=== PATIENT | female | born 2000 | race Caucasian/White ===

== ENCOUNTER 2018-12-21 23:15 | Emergency (ER) | payer OTHER ==
[2018-12-22 00:17] LABS: ABSOLUTE BASOPHILS # (AUTO) 0.1 10^3/uL (0.0-0.2); ABSOLUTE EOSINOPHILS # (AUTO) 0.2 10^3/uL (0.0-0.6); ABSOLUTE LYMPHOCYTES (AUTO) 1.2 10^3/uL (0.5-4.7); ABSOLUTE MONOCYTES (AUTO) 0.4 10^3/uL (0.1-1.4); ABSOLUTE NEUT (AUTO) 5.3 10^3/uL (1.7-8.2); BASOPHILS % (AUTO) 0.8 % (0-2); EOSINOPHILS % (AUTO) 2.7 % (0-6); HEMATOCRIT 42.9 % (36.0-47.0); LYMPHOCYTES % (AUTO) 16.6 % (13-45); MEAN CORPUSCULAR HEMOGLOBIN 31.5 pg (27.0-33.4); MEAN CORPUSCULAR VOLUME 90 fl (80-97); MONOCYTES % (AUTO) 5.4 % (3-13); PLATELET COUNT 231 10^3/uL (150-450); RED BLOOD COUNT 4.77 10^6/uL (3.72-5.28); RED CELL DISTRIBUTION WIDTH 13.1 % (11.5-14.0); SEGMENTED NEUTROPHILS % (AUTO) 74.5 % (42-78); TOTAL CELLS COUNTED % (AUTO) 100 %; WHITE BLOOD COUNT 7.1 10^3/uL (4.0-10.5)
[2018-12-22 00:19] LABS: APPEARANCE,URINE SLIGHTLY-CLOUDY; BILIRUBIN,URINE NEGATIVE (NEGATIVE); COLOR,URINE YELLOW; GLUCOSE, URINE NEGATIVE (NEGATIVE); KETONES,URINE NEGATIVE (NEGATIVE); LEUKOCYTE ESTERASE,URINE NEGATIVE (NEGATIVE); NITRITE,URINE POSITIVE (NEGATIVE); PROTEIN,URINE NEGATIVE (NEGATIVE); URINE SPECIFIC GRAVITY 1.017; UROBILINOGEN,URINE NEGATIVE mg/dL (<2.0)
--- NOTE | 2018-12-22 00:24 | ER Document Report ---
ED General - General Chief Complaint: Suicidal Ideation Stated Complaint: SUICIDAL Time Seen by Provider: 12/21/18 23:36 Notes: Patient is a 18-year-old female presents with complaint of suicidal ideations. She is brought in by mobile crisis. She is an [employer]. She said she has previous history of some mild depression but never had to attempt to try to hurt herself. She did have a an infant 5 months ago. She says she did have some depression starting after delivery of her and has progressively got worse. He admits that she is not exactly sure exactly what may be causing her to be so depressed or suicidal. She said she did talk to her doctor wants about depression but says nothing really came of the discussion. Tonight she wrote a suicide note. She does have a gun at home and plan on shooting her self. She is currently not on any medications. She is otherwise healthy. She has no other complaints at this time. TRAVEL OUTSIDE OF THE [place] IN LAST 30 DAYS: No Past Medical History - Social History Smoking Status: Unknown if Ever Smoked Chew tobacco use (# tins/day): No Frequency of alcohol use: None Drug Abuse: None Family History: Reviewed & Not Pertinent Patient has suicidal ideation: Yes Patient has homicidal ideation: No Renal/ Medical History: Denies: Hx Peritoneal Dialysis Review of Systems - Review of Systems Notes: My Normal Review Basic REVIEW OF SYSTEMS: CONSTITUTIONAL : Denies fever, chills, or sweats. Denies recent illness. RESPIRATORY: Denies cough, cold, or chest congestion. Denies shortness of breath, difficulty breathing, or wheezing. GASTROINTESTINAL: Denies abdominal pain. Denies nausea, vomiting, or diarrhea. GENITOURINARY: Denies difficulty urinating, painful urination, burning, frequency, or blood in urine. FEMALE GENITOURINARY: Denies vaginal bleeding, abnormal or irregular periods. MUSCULOSKELETAL: Denies neck or back pain or joint pain or swelling. SKIN: Denies rash or skin lesions. NEUROLOGICAL: Denies altered mental status or loss of consciousness. Denies headache. Denies weakness or paralysis or loss of use of either side. Denies problems with gait or speech. Denies sensory or motor loss. PSYCHIATRIC: Depression and suicidal ideations ALL OTHER SYSTEMS REVIEWED AND NEGATIVE. Physical Exam - Vital signs Vitals: Temp Pulse Resp BP Pulse Ox 98.1 F 72 16 110/72 97 06/15/19 23:17 12/21/18 23:17 12/21/18 23:17 12/21/18 23:17 12/21/18 23:17 - Notes Notes: General Appearance: Well nourished, alert, cooperative, no acute distress, no obvious discomfort. Tearful on exam. Vitals: reviewed, See vital signs table. Head: no swelling or tenderness to the head Eyes: PERRL, EOMI, Conjuctiva clear Mouth: No decreasd moisture Lungs: No wheezing, No rales, No rhonci, No accessory muscle use, good air exchange bilaterally. Heart: Normal rate, Regular rythm, No murmur, no rub Abdomen: Normal BS, soft, No rigidity, No abdominal tenderness, No guarding, no rebound Extremities: good pulses in all extremities, no swelling or tenderness in the extremities, no edema. Skin: warm, dry, appropriate color, no rash Neuro: speech clear, oriented x 3, normal affect, responds appropriately to questions. Psychiatric: Patient is very tearful on exam. She is obviously very depressed. She is very cooperative. She has normal organized thought process on exam. Course - Re-evaluation Re-evalutation: 12/22/18 01:30 Patient has appears to have true suicidal ideations. She is very tearful on exam and has a plan in the means to execute the plan. I suspect this most likely related to worsening depression is gone untreated. I suspect this being that the patient says he does not really have any inciting events that would be causing depression other than the fact that she noticed that it started to occur right after delivery of her child 5 months ago. She does have a gun at home. She did write a suicide note. I strongly feel that she needs to be evaluated by psychiatry. She is an active duty [employer] and informed her that she most likely will be transferred to [facility] in the morning after her mental health team talks to her. Patient is understanding of this. Patient's medical work-up is negative except for some nitrites in urine however she not have a significant amount of white blood cells and urinary symptoms and therefore I do not feel she needs treatment for UTI. Patient is medically stable for mental health evaluation. Dictation of this chart was performed using voice recognition software; therefore, there may be some unintended grammatical errors. - Vital Signs Vital signs: Temp Pulse Resp BP Pulse Ox 98.1 F 72 16 110/72 97 12/21/18 23:17 12/21/18 23:17 12/21/18 23:17 12/21/18 23:17 12/21/18 23:17 - Laboratory Result Diagrams: 12/21/18 23:45 12/21/18 23:45 Laboratory results interpreted by me: 12/21/18 12/21/18 23:45 23:45 Urine Blood SMALL H Urine Nitrite POSITIVE H Salicylates < 1.0 L Acetaminophen < 10 L - EKG Interpretation by Me Additional EKG results interpreted by me: 12/22/18 00:23 EKG is reviewed and interpreted by me. EKG shows sinus rhythm rate [address] segment elevation or depression. No ischemic T wave inversions. ME interval, QRS duration, QT intervals are within normal range. No old EKG available for comparison. Discharge - Discharge Clinical Impression: Suicidal ideations Condition: Stable Disposition: PSYCH HOSP/UNIT
[2018-12-22 00:27] LABS: ALANINE AMINOTRANSFERASE 36 U/L (9-52); ALBUMIN 4.4 g/dL (3.5-5.0); ALKALINE PHOSPHATASE 68 U/L (38-126); ANION GAP 8 (5-19); ASPARTATE AMINO TRANSFERASE 24 U/L (14-36); BILIRUBIN,DIRECT 0.2 mg/dL (0.0-0.4); BILIRUBIN,TOTAL 0.7 mg/dL (0.2-1.3); BLOOD UREA NITROGEN 12 mg/dL (7-20); CALCIUM 9.7 mg/dL (8.4-10.2); CARBON DIOXIDE 24 mmol/L (22-30); CHLORIDE 107 mmol/L (98-107); GLUCOSE 105 mg/dL (75-110); POTASSIUM 4.4 mmol/L (3.6-5.0); SODIUM 139.1 mmol/L (137-145); TOTAL PROTEIN 6.9 g/dL (6.3-8.2)
[2018-12-22 00:29] LABS: ACETAMINOPHEN < 10 ug/mL (10-30); ALCOHOL < 10 mg/dL (NONE DETECTED); SALICYLATE < 1.0 mg/dL (2.0-20.0)
[2018-12-22 00:44] LABS: URINE AMPHETAMINES SCREEN NEGATIVE; URINE BARBITURATES SCREEN NEGATIVE; URINE BENZODIAZEPINES SCREEN NEGATIVE; URINE COCAINE SCREEN NEGATIVE; URINE MARIJUANA (THC) SCREEN NEGATIVE; URINE METHADONE SCREEN NEGATIVE; URINE PHENCYCLIDINE SCREEN NEGATIVE
[2018-12-22 06:54] VITALS: BP 99/58
--- NOTE | 2018-12-22 09:06 | PSYCHOLOGICAL NOTE ---
Psych Note - Psych Note Date seen by psych provider: 12/22/18 Psych Note: Presenting Problem: SI with plan to shoot self (means, access), cocked gun, left a note. No MH Hx with exception of mild depression. Had a baby 5 months ago, she told medical staff depression started after baby was born and has worsened, she informed her doctor and nothing was done. and baby at bedside. He denied previous attempts. stated he can get his family from [place] to come down. He stated patient is not breast feeding and this was their first child. Coordinated with [facility]. Spoke to maranda Marino initially. Then Jatin called with Dr. Avila who accepted patient as a direct order. He is sending [facility] and someone from patient's command (Alejandro Maranda/Staff NCO). Diagnosis: Post Depression Medication recommendation made by the psychiatric medical provider, Dr. Milagros MD., includes: Add Prozac 20MG daily for depression Impression/Plan: Recommendation for patient to go to [facility] as direct order Dr. 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 Consulted with Dr. West regarding the management and care of patient. ED Physician in agreement with recommendations.
--- NOTE | 2018-12-22 09:21 | ER Document Report ---
Doctor's Note Notes: 12/22/18 09:21 Patient seen and evaluated. She appears to be in good spirits and is interactive with good eye contact. Her child is in the room and she is playing with him. Patient's family is at bedside. She is in no acute distress and has no complaints from last night. We are currently awaiting plan from psych regar ding her suicidal ideation and likely depression.
--- NOTE | 2018-12-22 10:07 | EKG REPORT ---
SEVERITY:- NORMAL ECG - SINUS ARRHYTHMIA SINUS RHYTHM : Confirmed by: Irvin Patterson MD 22-Dec-2018 10:06:56
== END 2018-12-22 12:21 ==
LOC: ER 23:15
DX: R45.851 Suicidal ideations (principal); F32.9 Major depressive disorder, single episode, unspecified
CPT/HCPCS: 36415; 80053; 80307; 81001; 84703; 85025; 93005; 93010; 99285